=== PATIENT | male | born 1950 | race Caucasian/White ===

== ENCOUNTER → 2021-04-26 15:03 | Outpatient (BNVA) | payer OTHER, SELFPAY | PROVIDERS: Visit Provider Internal Medicine | DX: Z01.812 Encounter for preprocedural laboratory examination (principal); Z12.11 Encounter for screening for malignant neoplasm of colon; Z20.822 Contact with and (suspected) exposure to COVID-19 | CPT/HCPCS: 87635 ==

== ENCOUNTER 2021-05-03 09:18 | Day surgery (SDC) | payer OTHER, SELFPAY ==
[2021-04-29 14:00] VITALS: BMI 26.5
--- NOTE | 2021-05-03 09:42 | P.HP_ITS ---
Same Day Surgery H&P Indication for Procedure/HPI DATE OF PROCEDURE: May 03, 2021 CHIEF COMPLAINT/INDICATIONFOR SURGICAL PROCEDURE: Screening PREOP DIAGNOSIS: Screening PLANNED PROCEDRUE: Operation Date: 05/03/21 10:30 Proposed Procedures p [id number] z12.11(Not Applicable) - Javier Michelle MD Medications/Allergies* Home Medications Medication Instructions Recorded Confirmed Type atorvastatin 20 mg tablet 20 mg PO DAILY 04/19/21 04/29/21 History lisinopril 20 mg tablet 20 mg PO DAILY 04/19/21 04/29/21 History omeprazole 40 mg capsule,delayed 40 mg PO DAILY 04/19/21 04/29/21 History release Allergies/Adverse Reactions Allergy/AdvReac Type Severity Reaction Status Date / Time alendronate sodium Allergy Intermediate Unknown Verified 04/26/21 14:01 Pertinent History/Comorbid Conditions* Social History Smoking and tobacco status: never smoked service: Yes History of recent travel: No Pertinent Exam Findings alert, oriented x 3, clear to auscultation bilaterally, regular rate & rhythm, operative site marked and procedure specific exam findings Recommendations Surgery/Procedure today Coding Level of Care Code Acute Finished Stock Inspector for Priscila Healy
[2021-05-03 09:48] VITALS: BP 120/98; PULSE 93; RESP 18; TEMP 36.2; O2SAT 96
--- NOTE | 2021-05-03 10:01 | ANES.PREANE2 ---
Pre-Anesthetic Assessment Pre-Anesthetic Assessment: Height/Weight: Height 1.78 m Weight 83.915 kg Temp Pulse Resp BP Pulse Ox 97.1 F L 93 18 120/98 96 05/03/21 09:48 05/03/21 09:48 05/03/21 09:48 05/03/21 09:48 05/03/21 09:48 Preop Diagnosis: screen Proposed Procedure: Operation Date: 05/03/21 10:30 Proposed Procedures p [id number] z12.11(Not Applicable) - Javier Michelle MD Was Beta Sanaz taken within 24 hours: N/A Was Clonidine taken within 24 hours: N/A Last intake: Intake Last Liquid Date 05/02/21 Last Liquid Time 20:00 Last Solid Date 05/01/21 Last Solid Time 16:30 Social: Social History: No alcohol and No tobacco Exam: Pre-Anes Outpt Exam: alert, oriented x 3, clear to auscultation bilaterally and regular rate & rhythm Airway: Submandibular: WNL Cervical ROM: WNL MP: 2 Dentition: Full CV/HEM: CV/HEM: HTN GI: GI: GERD Metabolic: Metabolic: Hyperlipidemia Anesthetic Plan: ASA status: 2 Anesthesia: MAC Risk of > 500 ml blood loss (7ml/kg in children): No PFSH Anesthesia PFSH: Social History (Updated 04/26/21 @ 14:06 by NADIRA Vila) Smoking and tobacco status: never smoked service: Yes History of recent travel: No Data Anesthesia Cardiac Studies: No Data to Display
[2021-05-03] MEDS: sodium chloride 0.9% 1,000 ML 30 ML IV (10:11)
[2021-05-03 11:11] VITALS: BP 121/84; PULSE 64; RESP 16; TEMP 36.1; O2SAT 93
[2021-05-03 11:36] VITALS: BP 123/95; PULSE 56; RESP 18; O2SAT 97
--- NOTE | 2021-05-03 12:57 | ANE.PACU2 ---
Inpatient post-anesthesia follow up: Airway intact: Yes Vital signs: Temperature 97.0 F Pulse Rate 56 Respiratory Rate 18 Blood Pressure 123/95 Pulse Oximetry 97 Oxygen Delivery Me thod Room Air Oxygen Flow Rate 3 Fraction of Inspir ed Oxygen Hydration adequate: Yes Nausea and vomiting: No Pain level: 1 Mental status: Baseline
== END 2021-05-03 12:00 | disposition home or self-care (01) ==
PROVIDERS: Visit Provider Internal Medicine
PROC: 0DJD8ZZ Inspection of Lower Intestinal Tract, Via Natural or Artificial Opening Endoscopic (ICD-10-PCS; CPT 45378; principal; 2021-05-03 10:30)
DX: Z12.11 Encounter for screening for malignant neoplasm of colon (principal); I10 Essential (primary) hypertension; E78.5 Hyperlipidemia, unspecified; K21.9 Gastro-esophageal reflux disease without esophagitis
CPT/HCPCS: 45378; 96360; G0121; J2704; J3490; J7030

== ENCOUNTER → 2022-03-24 12:32 | Outpatient (BNVA) | payer OTHER, SELFPAY | PROVIDERS: Referring Provider Nurse Practitioner; Visit Provider Internal Medicine | DX: E05.90 Thyrotoxicosis, unspecified without thyrotoxic crisis or storm (principal); E04.1 Nontoxic single thyroid nodule | CPT/HCPCS: 36415; 83516; 84439; 84443; 84480; 86376; 86800; 99204 ==

== ENCOUNTER → 2022-05-24 10:31 | Outpatient (BNVA) | payer OTHER, SELFPAY | PROVIDERS: PCP Nurse Practitioner; Visit Provider Internal Medicine | DX: E05.90 Thyrotoxicosis, unspecified without thyrotoxic crisis or storm (principal); E04.1 Nontoxic single thyroid nodule; M85.80 Other specified disorders of bone density and structure, unspecified site | CPT/HCPCS: 36415; 84439; 84443; 84480; 99214 ==

== ENCOUNTER 2022-06-06 13:54 | Outpatient (CLI) | payer OTHER, SELFPAY ==
--- NOTE | 2022-06-06 14:15 | US_ITS ---
WS: [email or web address] THYROID ULTRASOUND HISTORY: Thyroid nodule COMPARISON: None available. Right lobe: 2.3 cm x 2.2 cm x 5.5 cm (w x ap x l). Volume: 14.5 cm3. Lobulated heterogeneous appearance to nearly the entire gland. There are multiple scattered cystic ar eas in echogenic foci. Mildly enlarged thyroid. There is a nodule in the mid to inferior gland which contains coarse calcification with shadowing. This nodule is contiguous with the additional component extending into the mid gland. There is mild increased vascularity. The solid component with shadowin g and calcification measures at least 1.3 x 1.8 cm. There is additional contiguous solid component wi th more tiny punctate echogenic foci. Left lobe: 3.8 cm x 3.8 cm x 6.8 cm (w x ap x l). Volume: 51.4 cm3. Enlarged lobulated heterogeneous gland. Mild diffuse increased vascularity. There is no one discrete nodule is more concerning than another throughout the gland. Isthmus: 0.9 cm. US/US thyroid [id number] IMPRESSION: 1. Enlarged heterogeneous lobulated thyroid gland. 2. TI-RADS 4. The most concerning nodule is in the mid to lower RIGHT thyroid. There are coarse calcifications and also echogenic punctate calcifications pre sent. The margins are ill-defined. Fine-needle aspiration recommended.
== END 2022-06-06 13:55 | disposition home or self-care (01) ==
LOC: RAD 13:55
PROVIDERS: PCP Nurse Practitioner; Visit Provider Internal Medicine
DX: E04.1 Nontoxic single thyroid nodule (principal)
CPT/HCPCS: 76536

== ENCOUNTER 2022-06-17 08:19 | Outpatient (CLI) | payer OTHER, SELFPAY ==
[2022-06-17 09:37] LABS: Free T4 Free Thyroxine 0.86 ng/dL (0.82-1.77)
[2022-06-18 07:34] LABS: T3 Total 166 ng/dL (76-181)
== END 2022-06-17 08:20 | disposition home or self-care (01) ==
LOC: LAB 08:22
PROVIDERS: PCP Nurse Practitioner; Visit Provider Internal Medicine
DX: E04.1 Nontoxic single thyroid nodule (principal)
CPT/HCPCS: 36415; 84439; 84443; 84480

== ENCOUNTER 2022-08-08 11:39 | Outpatient (CLI) | payer OTHER, SELFPAY ==
--- NOTE | 2022-08-08 13:00 | US_ITS ---
WS: [email or web address] ULTRASOUND-GUIDED RIGHT THYROID NODULE FNA HISTORY: thyroid nodule Procedure, risks, and complications were explained to the patient. Consent has been obtained. Comparison: 06/06/2022 The most concerning nodule is targeted for biopsy. This includes the mid to lower pole of the thyroid where there is large shadowing calcification. This is a multinodular gland. The skin is cleansed with ChloraPrep and anesthetized with 1% buffered lidocaine. FNA performed with 25 gauge needles. product/device technologist is present to fix slides. US/US biopsy/FNA thyroid [id number] IMPRESSION: Uncomplicated FNA of a RIGHT lower pole thyroid nodule. Final pathology results pending.
== END 2022-08-08 11:40 | disposition home or self-care (01) ==
LOC: RAD 11:41
PROVIDERS: PCP Nurse Practitioner; Visit Provider Internal Medicine
DX: E04.1 Nontoxic single thyroid nodule (principal)
CPT/HCPCS: 10005; 88108

== ENCOUNTER → 2022-11-17 11:03 | Outpatient (BNVA) | payer OTHER, SELFPAY | PROVIDERS: PCP Nurse Practitioner; Visit Provider Internal Medicine | DX: E05.90 Thyrotoxicosis, unspecified without thyrotoxic crisis or storm (principal); E04.1 Nontoxic single thyroid nodule; M85.80 Other specified disorders of bone density and structure, unspecified site; I10 Essential (primary) hypertension | CPT/HCPCS: 36415; 84439; 84443; 84480; 99214 ==

== ENCOUNTER → 2023-05-17 11:54 | Outpatient (BNVA) | payer OTHER, SELFPAY | PROVIDERS: PCP Nurse Practitioner; Visit Provider Internal Medicine | DX: E05.90 Thyrotoxicosis, unspecified without thyrotoxic crisis or storm (principal); E04.1 Nontoxic single thyroid nodule; M85.80 Other specified disorders of bone density and structure, unspecified site; I10 Essential (primary) hypertension | CPT/HCPCS: 84439; 84443; 84480; 99214 ==

== ENCOUNTER 2023-05-26 09:29 | Outpatient (CLI) | payer OTHER, SELFPAY ==
--- NOTE | 2023-05-26 10:15 | US_ITS ---
WS: [email or web address] ULTRASOUND THYROID TECHNIQUE: Ultrasound of the thyroid. CLINICAL INFORMATION: thyroid nodule COMPARISON: 08/08/2022 FINDINGS: Thyroid: Enlarged heterogeneous thyroid. RIGHT complex mid inferior thyroid nodule with calcification with history of FNA. This is stable in a ppearance today measuring 2.1 x 1.7 x 3.2 cm. Diffusely heterogeneous LEFT thyroid lobe. No dominant nodules to target for biopsy. Right thyroid lobe: 6.5 cm x 2.8 cm x 3.1 cm Left thyroid lobe: 8.3 cm x 5.2 cm x 5.0 cm. Enlarged Isthmus: 11 mm. Cervical lymphadenopathy: None. IMPRESSION: 1. Diffusely enlarged heterogeneous thyroid echotexture bilaterally. This is similar to previous. Re commend continued ultrasound surveillance. 2. Complex nodule RIGHT mid and inferior thyroid with history of prior FNA. 3. No dominant suspicious LEFT thyroid nodules.
== END 2023-05-26 09:30 | disposition home or self-care (01) ==
LOC: RAD 09:31
PROVIDERS: PCP Nurse Practitioner; Visit Provider Internal Medicine
DX: E04.1 Nontoxic single thyroid nodule (principal); E07.9 Disorder of thyroid, unspecified
CPT/HCPCS: 76536

== ENCOUNTER 2023-11-16 09:17 | Outpatient (CLI) | payer OTHER, SELFPAY ==
[2023-11-16 10:36] LABS: Free T4 Free Thyroxine 1.13 ng/dL (0.82-1.77)
[2023-11-17 11:25] LABS: T3 Total 141 ng/dL (76-181)
== END 2023-11-16 09:18 | disposition home or self-care (01) ==
LOC: LAB 09:18
PROVIDERS: PCP Nurse Practitioner; Visit Provider Internal Medicine
DX: E05.90 Thyrotoxicosis, unspecified without thyrotoxic crisis or storm (principal); E04.1 Nontoxic single thyroid nodule; M85.80 Other specified disorders of bone density and structure, unspecified site; I10 Essential (primary) hypertension
CPT/HCPCS: 84439; 84443; 84480

== ENCOUNTER → 2023-11-21 10:44 | Outpatient (BNVA) | payer OTHER, SELFPAY | PROVIDERS: PCP Nurse Practitioner; Visit Provider Internal Medicine | DX: E55.9 Vitamin D deficiency, unspecified (principal); E05.90 Thyrotoxicosis, unspecified without thyrotoxic crisis or storm; E04.1 Nontoxic single thyroid nodule; M85.80 Other specified disorders of bone density and structure, unspecified site; I10 Essential (primary) hypertension | CPT/HCPCS: 99214 ==

== ENCOUNTER → 2024-06-17 07:57 | Outpatient (BNVA) | payer OTHER, SELFPAY | PROVIDERS: PCP Nurse Practitioner; Visit Provider Internal Medicine | DX: E05.90 Thyrotoxicosis, unspecified without thyrotoxic crisis or storm (principal); E04.1 Nontoxic single thyroid nodule; E55.9 Vitamin D deficiency, unspecified; M85.80 Other specified disorders of bone density and structure, unspecified site; I10 Essential (primary) hypertension | CPT/HCPCS: 36415; 82306; 84439; 84443; 84480; 99214 ==

== ENCOUNTER 2024-07-04 14:31 | Outpatient (CLI) | payer OTHER, SELFPAY ==
--- NOTE | 2024-07-04 15:00 | XR_ITS ---
WS: [email or web address] SCREENING DEXA SCAN [facility] (roll.to) CLINICAL INFORMATION: Vit D deficiency COMPARISON: None. FINDINGS: The L1-L4 bone mineral density measures 1.01. This corresponds to a T score score of -1.9 and Z score of -1.7. Left femoral neck bone mineral density measures 0.765 g/cm2. This corresponds to a T score of -2.3 an d Z score of -1.7. Right femoral neck bone mineral density measures 0.735 g/cm2. This corresponds to a T score -2.5of an d Z score of -1.9. Mean femoral neck bone mineral density measures 0.750 g/cm2. This corresponds to a T score of -2.4 an d Z score of -1.8. XR/XR DEXA axial skeleton* [id number] IMPRESSION: Osteopenia lumbar spine. Osteopenia femoral necks at the upper end of the range . Patient's FRAX calculated 10 year probability for major osteoporotic fracture i s 19.6% and osteoporotic hip fracture is 12.5%.
== END 2024-07-04 14:32 | disposition home or self-care (01) ==
LOC: RAD 14:31
PROVIDERS: PCP Nurse Practitioner; Visit Provider Internal Medicine
DX: E55.9 Vitamin D deficiency, unspecified (principal); M85.80 Other specified disorders of bone density and structure, unspecified site
CPT/HCPCS: 77080

== ENCOUNTER 2024-07-15 16:46 | Outpatient (CLI) | payer OTHER, SELFPAY ==
--- NOTE | 2024-07-15 17:15 | US_ITS ---
WS: [email or web address] THYROID ULTRASOUND HISTORY: thyroid nodule COMPARISON: 05/26/2023, 06/06/2022 Right lobe: 2.4 cm x 2.7 cm x 5.9 cm (w x ap x l). Volume: 18.3 cm3. Moderately enlarged very heterogeneous thyroid. Cystic and solid nodules with coarse shadowing calcif ications. There is also increased vascularity. The entire gland is enlarged and heterogeneous and nod ular. Left lobe: 5.2 cm x 3.3 cm x 6.5 cm (w x ap x l). Volume: 53.4 cm3. Markedly enlarged thyroid. Cystic and solid contiguous nodules throughout the gland with increased va scularity. Similar to prior studies. Isthmus: 1.0 cm. US/US thyroid [id number] IMPRESSION: 1. Markedly enlarged heterogeneous gland. A TI-RADS designation is very diffic ult. The most concerning nodule in the RIGHT thyroid has been previously biopsi ed. The entire thyroid is enlarged and heterogeneous. There is no one discrete nodule which is more concerning than an additional area. The appearance of the thyroid is similar to prior studies. It would be difficult to identify thyroid neoplasm as a single discrete structure.
== END 2024-07-15 16:47 | disposition home or self-care (01) ==
LOC: RAD 16:47
PROVIDERS: PCP Nurse Practitioner; Visit Provider Internal Medicine
DX: E07.9 Disorder of thyroid, unspecified (principal); E04.2 Nontoxic multinodular goiter
CPT/HCPCS: 76536

== ENCOUNTER 2024-12-10 09:03 | Outpatient (CLI) | payer OTHER, SELFPAY ==
[2024-12-10 11:23] LABS: Free T4 Free Thyroxine 1.08 ng/dL (0.82-1.77); Thyroid Stimulating Hormone 1.66 uIU/mL (0.27-4.20)
[2024-12-10 11:55] LABS: 25 Hydroxy Vitamin D 40 ng/mL (30-100)
[2024-12-11 06:10] LABS: T3 Total 135 ng/dL (76-181)
== END 2024-12-10 09:04 | disposition home or self-care (01) ==
LOC: LAB 09:05
PROVIDERS: PCP Nurse Practitioner; Visit Provider Internal Medicine
DX: E55.9 Vitamin D deficiency, unspecified (principal); E05.90 Thyrotoxicosis, unspecified without thyrotoxic crisis or storm; E04.1 Nontoxic single thyroid nodule
CPT/HCPCS: 36415; 82306; 84439; 84443; 84480

== ENCOUNTER → 2024-12-16 09:21 | Outpatient (BNVA) | payer OTHER, SELFPAY | PROVIDERS: PCP Nurse Practitioner; Visit Provider Internal Medicine | DX: I10 Essential (primary) hypertension (principal); E05.90 Thyrotoxicosis, unspecified without thyrotoxic crisis or storm; E04.1 Nontoxic single thyroid nodule; E55.9 Vitamin D deficiency, unspecified; M81.0 Age-related osteoporosis without current pathological fracture; N18.9 Chronic kidney disease, unspecified; K21.9 Gastro-esophageal reflux disease without esophagitis | CPT/HCPCS: 36415; 80048 ==

== ENCOUNTER 2025-06-06 09:03 | Outpatient (CLI) | payer OTHER, SELFPAY ==
[2025-06-06 10:42] LABS: Free T4 Free Thyroxine 1.12 ng/dL (0.82-1.77); Thyroid Stimulating Hormone 1.90 uIU/mL (0.27-4.20)
== END 2025-06-06 09:04 | disposition home or self-care (01) ==
LOC: LAB 09:06
PROVIDERS: PCP Nurse Practitioner; Visit Provider Internal Medicine
DX: M85.80 Other specified disorders of bone density and structure, unspecified site (principal); E55.9 Vitamin D deficiency, unspecified; E05.90 Thyrotoxicosis, unspecified without thyrotoxic crisis or storm; I10 Essential (primary) hypertension
CPT/HCPCS: 36415; 82306; 84439; 84443; 84480

== ENCOUNTER → 2025-06-17 07:38 | Outpatient (BNVA) | payer OTHER, SELFPAY | PROVIDERS: PCP Nurse Practitioner; Visit Provider Internal Medicine | DX: E05.90 Thyrotoxicosis, unspecified without thyrotoxic crisis or storm (principal); E04.1 Nontoxic single thyroid nodule; I10 Essential (primary) hypertension; E55.9 Vitamin D deficiency, unspecified; M81.0 Age-related osteoporosis without current pathological fracture; N18.9 Chronic kidney disease, unspecified; K21.9 Gastro-esophageal reflux disease without esophagitis | CPT/HCPCS: 99214 ==

== ENCOUNTER 2025-06-27 13:40 | Outpatient (CLI) | payer OTHER, SELFPAY ==
--- NOTE | 2025-06-27 13:45 | US_ITS ---
WS: [email or web address] THYROID ULTRASOUND HISTORY: thyroid Nodule COMPARISON: 07/15/2024, 05/26/2023 Right lobe: 2.4 cm x 2.3 cm x 6.1 cm (w x ap x l). Volume: 16.2 cm3. Enlarged RIGHT thyroid. There are multiple scattered cysts throughout the thyroid. Focal area of shadowing from the lower pole of the RIGHT thyroid measures 1.7 x 1.5 x 1.9 cm. This calcified mass was described and biopsied on 08/08/2022. Left lobe: 3.4 cm x 3.1 cm x 5.6 cm (w x ap x l). Volume: 27.6 cm3. Enlarged thyroid. Heterogeneous thyroid with multiple cysts scattered throughout. Increased vascularity within the gland. Isthmus: 1.4 cm. US/US thyroid [id number] IMPRESSION: 1. Heterogeneous enlarged thyroid. 2. TI-RADS 2; thyroid nodules are predominantly cystic. 3. The largest nodule with peripheral calcification in the RIGHT inferior thyr oid has been previously biopsied. Very similar in appearance to 08/08/2022. Thi s portion of the gland is poorly visualized and obscured by the calcification s hadow.
== END 2025-06-27 13:41 | disposition home or self-care (01) ==
LOC: RAD 13:42
PROVIDERS: PCP Nurse Practitioner; Visit Provider Internal Medicine
DX: E04.1 Nontoxic single thyroid nodule (principal)
CPT/HCPCS: 76536